=== PATIENT | female | born 1945 | race Caucasian/White ===

== ENCOUNTER 2016-03-11 18:36 | Inpatient (IN) | payer OTHER ==
[~2016-03-11] VITALS: Ht 157.5 cm; Wt 77.6 kg
--- NOTE | ~2016-03-11 | HC ---
[facility] [place] [address] CONSULTATION Name: MAEM JONES Room #: 305- ADM IN M.R.#: [id number] Admission: 03/11/16 Attend Phys: Kt Corona MD Discharge: Date of : 45 Report #: [id number] THIS REPORT FOR: //name// CC: Kt Corona [facility] physician/PCP DATE OF SERVICE: 03/14/2016 TYPE OF REPORT: General surgery consultation. REFERRING PROVIDER: Alfredito Kohli M.D. REASON FOR CONSULTATION: Left ischial decubitus ulcer. HISTORY OF PRESENT ILLNESS: The patient is a 70-year-old female who was transitioned from [facility] to [facility] with mental status changes and a CT scan of the brain that showed evidence of a left anterior cerebellar infarct. The patient has a history of prior stroke and has been bedridden for 3 years with a resultant left ischial wound that was initially treated at [facility] and then subsequently at [facility] on the keymar. The patient has undergone a prior debridement of her left ischial wound and has been undergoing aggressive local wound care. The patient does have a dialysis dependent renal failure secondary to diabetes mellitus and now that she has been transferred to [facility], Dr. Kohli from a wound care standpoint has evaluated her wound and feels that she will likely necessitate repeat excisional debridement. For that reason, I was asked to evaluate. PAST MEDICAL HISTORY: End-stage renal disease, on hemodialysis, diabetes mellitus, prior and current stroke, chronic anemia, hypertension, COPD, prior C. diff colitis, peripheral vascular disease status post stenting, renal artery stenosis status post stenting and her left ischial decubitus ulcers. CURRENT MEDICATIONS: Quetiapine, mirtazapine, doxazosin, aspirin, amlodipine, atorvastatin, iron, carvedilol, Synthroid, Protonix, Carafate, sevelamer, Neurontin and hydralazine. ALLERGIES: To SULFA. FAMILY HISTORY: Reviewed and noncontributory. SOCIAL HISTORY: The patient "smoke 3 years ago; however, she smoked 4 packs per day for several years prior, does not use any alcohol or illicit drugs currently. REVIEW OF SYSTEMS: [address] [address] CONSULTATION Name: MAME JONES Room #: 305-P [facility] IN .R.#: [id number] Admission: 03/11/16 Attend Phys: Kt Corona MD Discharge: Date of : 45 Report #: [id number] GENERAL: The patient is quite somnolent but arouses with stimulation and generally states she does not have any nocturnal fevers or chills. HEENT: No change in vision or change in hearing. NECK: No swelling or difficulty swallowing. HEART: No chest pain or palpitations. LUNGS: No cough or shortness of breath. ABDOMEN: No nausea and no vomiting. GENITOURINARY: No dysuria or hematuria. ENDOCRINE: No polyuria or polydipsia. HEMATOLOGIC: No history of bleeding or easy bruising. EXTREMITIES: No history of weakness or limited range of motion. NEUROLOGICAL: No history of syncope or near-syncopal episodes. SKIN AND INTEGUMENT: Longstanding history of a left ischial decubitus wound but no other history of abnormal lesions or moles. PSYCHIATRIC: No history of anxiety or depression. PHYSICAL EXAMINATION: VITAL SIGNS: Temperature 98.6, pulse 70, respirations 20 and blood pressure 149/59. She is 5 feet 2 inches tall and weighs 171 pounds. GENERAL: She is somnolent, but arouses with stimulation and is in no acute distress. HEENT: Normocephalic and atraumatic. Pupils equal, round and reactive to light. NECK: Supple without lymphadenopathy. Trachea midline. CARDIOVASCULAR: Heart regular rate and rhythm. RESPIRATORY: Lungs clear to auscultation bilaterally. ABDOMEN: Soft, nontender and nondistended. GENITOURINARY: Normal external female genitalia. SKIN: No clubbing, cyanosis or edema. NEUROLOGICAL: Cranial nerves 2 through 12 are grossly intact with no lateralizing signs currently. PSYCHIATRIC: Normal mood and affect; however, she does have overt somnolence. SKIN AND INTEGUMENT: Left ischial decubitus wound shows some nonviable fibrinopurulent material in the bed of the wound with a small amount of periwound necrosis and undermining circumferentially. LABORATORY AND X-RAY DATA: CBC showed white blood cell count of 9.0; hemoglobin 10.3 and platelets 255,000. She has a left shift with 75% neutrophils. Her creatinine is 5.5. Urine culture was positive for Seda. Chest x-ray shows no acute cardiopulmonary process. Hemoglobin A1c 5.6. MRA shows unremarkable findings. MRI shows an acute left cerebellar infarct as well as extensive white matter disease. ASSESSMENT AND PLAN: A 70-year-old female with a longstanding left ischial decubitus wound as well as a recent [id number] cerebrovascular accident. The patient has been admitted to be evaluated by neurology as well as [address] [address] CONSULTATION Name: MAME JONES Room #: 305-P ADM IN M.R.#: [id number] Admission: 03/11/16 Attend Phys: Kt Corona MD Discharge: Date of : 45 Report #: [id number] nephrology for her dialysis needs. The patient will likely necessitate debridement of her left ischial decubitus wound at some point once she is stabilized. However, for now, I would continue with aggressive local wound care, offloading her wound and optimizing nutritional status while we await stabilization of her neurologic symptoms from her recent acute cerebellar infarct. I sincerely appreciate this consult. I will follow closely and leave any further recommendations and the patient's chart as appropriate. <ELECTRONICALLY SIGNED> By: Qiana Hernandez MD, FACS 03/15/16 0750 2027 [id number] Qiana Hernandez MD, FACS /nt
--- NOTE | ~2016-03-11 | H ---
[facility] [place] [address] HISTORY AND PHYSICAL Name: MAME JONES Room #: 305-P ADM IN M.R.#: [id number] Admission: 03/11/16 Attend Phys: Kt Corona MD Discharge: Date of : 45 Report #: [id number] THIS REPORT FOR: //name// CC: Kt AUGUSTIN physician/PCP DATE OF SERVICE: 03/11/2016 HISTORY OF PRESENT ILLNESS: The patient is a 70-year-old female who was transferred from [facility] to [facility] for altered mental status with abnormal CT scan. The patient apparently was having some intermittent episodes of double vision over the last few months and some altered mental status. The patient had a CT scan of the brain that showed possible subacute infarct of the brain. For this reason, she was transferred to [facility] for further evaluation. The patient has been treated at [facility] for urinary tract infection and left ischial decubital ulcer. The patient was having intermittent nausea and vomiting. The patient was having some diarrhea and her stool for C. diff came back negative. PAST MEDICAL HISTORY: Significant for the above-mentioned ischial decubital ulcer and urinary tract infection. The patient had previous history of C. difficile colitis, end-stage renal disease on hemodialysis, chronic congestive heart failure, type 2 diabetes mellitus, anemia of chronic disease, hypertension, hypothyroidism, some deformity of her ankle and her feet, hyperlipidemia, history of chronic obstructive pulmonary disease, renal artery stenosis status post stenting, peripheral vascular disease status post femoral bypass and bilateral carotid bruits. MEDICATIONS: Reviewed and reconciled. SOCIAL HISTORY: The patient is a . She smoked 4 packs a day for 40 years, but she stopped in 2002. ALLERGIES: SULFA and INFLUENZA VACCINE. PAST SURGICAL HISTORY: Tubal ligation, renal artery stenosis, femoral bypass surgery, tonsillectomy, appendectomy and repair of a cleft palate. FAMILY HISTORY: Significant for diabetes, coronary artery disease and adrenal cancer. REVIEW OF SYSTEMS: Unobtainable. PHYSICAL EXAMINATION: GENERAL: When I came to see the patient, she was responding to verbal stimulation, but she was able to follow commands. The patient was able to open [facility] [address] [place] [address] HISTORY AND PHYSICAL Name: MAME JONES Room #: 305-P [facility] IN .R.#: [id number] Admission: 03/11/16 Attend Phys: Kt Corona MD Discharge: Date of : 45 Report #: [id number] her eyes, but very lethargic. VITAL SIGNS: The patient's temperature was 98.0, pulse 69, respirations 13, blood pressure 114/46. HEAD AND NECK: Unremarkable. NECK: Supple. LUNGS: Clear to auscultation with good air entry bilaterally. CARDIOVASCULAR: S1, S2, without any murmur or gallop. ABDOMEN: Benign. Bowel sounds were positive. EXTREMITIES: Without any edema. The patient is able to follow the command and she was able to squeeze my hands and to move her legs. LABORATORY DATA: The patient's 12-lead EKG showed sinus rhythm with nonspecific intraventricular conduction delay with left axis deviation, left ventricular hypertrophy. CBC showed a white count of 11.9, hemoglobin 10.9, hematocrit 33.0, platelet count 254, neutrophils are 81% with 3% band. The patient's sodium is 138, potassium 3.6, chloride 99, bicarbonate 30, BUN 19, creatinine 2.3, glucose 146, AST 21. Lipase 334, alkaline phosphatase 122, ALT 15, total protein 8.3, albumin is 2.6. Troponin less than 0.04. The patient's chest x-ray showed no acute cardiopulmonary process. Urinalysis showed cloudy urine, +2 protein, trace ketones, trace of blood, +2 leukocyte, more than 25 white blood cells. The patient's CT of the brain showed a well demarcated area of low density involving the left anterior cerebellar hemisphere extending into the vermis and left middle cerebral branch. This is most compatible with a subacute or chronic infarct periventricular white matter disease and prior right-sided cerebral infarct. The patient's INR is 1 and PTT was 26.4. ASSESSMENT AND PLAN: 1. Altered mental status. 2. Possible infarct. 3. Recent urinary tract infection. 4. Ischial decubital ulcer. 5. End-stage renal disease, on hemodialysis. 6. Hypertension. 7. Recent urinary tract infection. 8. Recent anemia with requirement of blood transfusion. The patient will be admitted to the hospital with the above-mentioned diagnoses. We are having an MRI done on the patient in addition to an MRA and ultrasound of the carotid arteries. We will check an echocardiogram on the patient. The patient is not on any aspirin. For this reason, I will go ahead and start patient on aspirin. I will have Neurology to consult on the patient in addition [facility] [address] [place] [address] HISTORY AND PHYSICAL Name: MAME JONES Room #: 305-P ADM IN M.R.#: [id number] Admission: 03/11/16 Attend Phys: Kt Corona MD Discharge: Date of : 45 Report #: [id number] to Nephrology. We will wait for the urine culture and we will have Wound to consult on her wound. <ELECTRONICALLY SIGNED> By: Kt Corona MD 03/13/16 0712 0659 0749 Kt Corona MD /nt
--- NOTE | ~2016-03-11 | 2DMMODE ---
[facility] [place] [address] 2 D/M-MODE ECHOCARDIOGRAM Name: MAME JONES Room #: 305-P [facility] IN .R.#: [id number] Admission: 03/11/16 Attend Phys: Kt Corona MD Discharge: Date of : 45 Date of Service: 03/12/16 1145 Report #: [id number] THIS REPORT FOR: //name// Transthoracic Echocardiography Ordering physician: Kt Corona Referring physician: Kt Corona [employer] Sales Counter Manager: Yasmeen Butler RDCS Indications/History: COPD. Congestive heart failure. Risk factors: Current tobacco use. Hypertension. Diabetes mellitus. BP: 142 / HR: 65bpm Height: 62in Weight: 170.6lb 62 Study data: M-mode, complete 2D, complete spectral Doppler, and color Doppler. Location: Echo laboratory. Travel Sales Consultant. Image quality was adequate. 2D measurements Normal Normal LVID ED 45.2mm 36-57 IVS ED 15.1mm 6-11 LVID ES 36.1mm 23-40 LVPW ED 12.8mm 6-11 LA volume 38ml/m2 16-28 AoRoot diam 28mm 21-37 index ED LVOT diameter 17mm 18-23 Findings: Left ventricle: The cavity size was normal. Wall thickness was increased in a pattern of moderate LVH. Systolic function was normal. Wall motion was normal. Right ventricle: The cavity size was normal. Systolic function was normal. Right atrium: The atrium was dilated. Left atrium: The atrium was mildly dilated. Volume index: 38ml/m2 (S). Aortic valve: Structurally normal valve. Mildly sclerotic leaflets. Doppler: There was no stenosis. No [address] [address] 2 D/M-MODE ECHOCARDIOGRAM Name: MAME JONES Room #: 305-P [facility] IN M.R.#: [id number] Admission: 03/11/16 Attend Phys: Kt Corona MD Discharge: Date of : 45 Date of Service: 03/12/16 1145 Report #: [id number] regurgitation. Peak velocity: 139.3cm/s (S). Mitral valve: Calcified annulus. Doppler: There was no evidence for stenosis. No regurgitation. Peak E-wave velocity: 135.5cm/s. Peak gradient: 7.3mm Hg (D). Peak A-wave velocity: 127.4cm/s. Tricuspid valve: Structurally normal valve. Doppler: There was no evidence for stenosis. Trivial regurgitation. Regurgitant peak velocity: 251.7cm/s. Peak RV-RA gradient: 25mm Hg (S). Pulmonic valve: Structurally normal valve. Doppler: There was no evidence for stenosis. No regurgitation. Pericardium: There was no pericardial effusion. Aorta: Aortic root: The aortic root was normal in size. Pulmonary artery: Systolic pressure was estimated to be 30mm Hg. Diastolic function: Doppler parameters are consistent with abnormal left ventricular relaxation (grade 1 diastolic dysfunction). Systemic veins: Inferior vena cava: The vessel was normal in size; the respirophasic diameter changes were in the normal range (= 50%). Conclusions 1. Left ventricle: The cavity size was normal. Wall thickness was increased in a pattern of moderate LVH. Systolic function was normal. Doppler parameters are consistent with abnormal left ventricular relaxation (grade 1 diastolic dysfunction). 2. Aortic valve: Structurally normal valve. Mildly sclerotic leaflets. There was no stenosis. 3. Mitral valve: Calcified annulus. There was no evidence for stenosis. No regurgitation. Valve area by pressure half-time: 2.5cm2. Indexed valve area by pressure half-time: 1.35cm2/m2. 4. Tricuspid valve: Peak RV-RA gradient: 25mm Hg (S). 5. Pericardium, extracardiac: There was no pericardial effusion. <ELECTRONICALLY SIGNED> By: Geo Gottlieb MD 03/12/161711 1145 11 Geo Gottlieb MD /max
--- NOTE | ~2016-03-11 | EKG ---
[address] [place] [address] ELECTROCARDIOGRAM REPORT Name: GRAEME JONESLEY Room #: 305-P ADM IN M.R.#: [id number] Admission: 03/11/16 Attend Phys: Kt Corona MD Discharge: Date of : 45 Report #: [id number] THIS REPORT FOR: //name// [facility] ED Test Date: 2016-03-11 Test Time: 18:56:55 Pat Name: MAME JONES Department: Room: [facility] Gender: F Obstetric Assistant: [id number] : 1945 Requested By: Carolina Moura Order Number: [id number] MD: Geo Gottlieb Measurements Intervals [place] Rate: 68 P: 43 NM: 159 QRS: -36 QRSD: 119 T: 45 QT: 480 QTc: 511 Interpretive Statements Sinus rhythm Nonspecific IVCD with LAD Left ventricular hypertrophy No previous ECG available for comparison Electronically Signed On 03-12-2016 8:05:41 [employer]MONIA PRINT OPERATOR by Geo Gottlieb [email or web address] <ELECTRONICALLY SIGNED> By: Geo Gottlieb MD 03/12/16 0805 185 55 Geo Gottlieb MD /VICKY
--- NOTE | ~2016-03-11 | HC ---
[facility] [place] [address] CONSULTATION Name: MAME JONES Room #: 305-P ADM IN M.R.#: [id number] Admission: 03/11/16 Attend Phys: Kt Corona MD Discharge: Date of : 45 Report #: [id number] THIS REPORT FOR: //name// CC: Kt AUGUSTIN physician/PCP DATE OF SERVICE: 03/12/2016 Nephrology Consultation REASON FOR CONSULTATION: End-stage renal disease. HISTORY OF PRESENT ILLNESS: This is a 70-year-old female whom I have never seen before. Currently the patient is very lethargic, is noncommunicative, so I cannot get history for her. I have reviewed her electronic medical records and also reviewed several consultation notes and labs that were sent over from [facility]. She has been at now for the past 10 days. Prior to that, it looks like she was admitted originally to [facility], transferred from there to [facility] in [place] and then [facility] to [place]. She has had chronic wounds involving her left hip. She has also had urinary tract infections and some foot wounds. She has had a previous CVA and looks like she has had a worsening CVA at this time. From a renal standpoint, she has been on dialysis Monday, Monday and Monday, she has been dialyzing through a pair of left internal jugular vein Tesio catheters. She last dialyzed yesterday at [place]. It looks like she has end-stage renal disease due to diabetes. ADDITIONAL PAST MEDICAL HISTORY: Includes the decubitus ulcers, previous CVA, chronic anemia, hypertension, type 2 diabetes, some COPD, previous C. diff colitis, previous vascular disease involving lower extremity revascularization and a stent to one kidney artery. 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 CURRENT MEDICATIONS: Include quetiapine 12.5 mg daily, mirtazapine 7.5 mg at bedtime, doxazosin 2 mg at bedtime, aspirin 81 mg daily, amlodipine 5 mg daily, atorvastatin 20 mg daily, ferrous sulfate 325 mg b.i.d., carvedilol 12.5 mg b.i.d., levothyroxine 0.025 mg daily, pantoprazole 40 mg daily, Carafate 1 g 4 times daily, sevelamer 800 mg t.i.d. with meals as a phosphate binder, gabapentin 200 mg b.i.d., hydralazine 50 mg q. 8 hours and numerous p.r.n. medications. ALLERGIES: SULFA. [address] [address] CONSULTATION Name: MAME JONES Room #: 305-P [facility] IN M.R.#: [id number] Admission: 03/11/16 Attend Phys: Kt Corona MD Discharge: Date of : 45 Report #: [id number] FAMILY HISTORY: Positive for hypertension. SOCIAL HISTORY: The patient apparently is at least from the [facility], although I do not have a home address, she is unable to provide anything, again she has been to multiple hospitals recently including most recently . REVIEW OF SYSTEMS: Unavailable. PHYSICAL EXAMINATION: GENERAL: Elderly appearing female sleeping. She arouses briefly, but is noncommunicative at that time. VITAL SIGNS: Blood pressure 144/59, heart rate is 65, respiratory rate 18, temperature 36.4, oxygen saturation 100%. HEENT: Shows pupils that are 3 mm and reactive. Sclerae are nonicteric. Oral mucosa is dry. NECK: Supple, no JVD. She has a pair of tunneled left internal jugular vein Tesio catheters in place. CHEST: Shows a few central rhonchi. HEART: Has a regular rate and rhythm. ABDOMEN: Has bowel sounds, which are present. Abdomen is soft, nondistended, nontender. EXTREMITIES: Show no peripheral edema. LABORATORY DATA: Sodium ____, potassium 3.6, chloride 99, bicarbonate 30, BUN 19, creatinine 2.3, glucose 146, calcium 9.0, total protein 8.3, albumin 2.6. White count 9.3, hemoglobin 10.5, hematocrit 31.8, platelets 249,000. Urinalysis, specific gravity 1.025, pH 5.5, 2+ protein, trace ketones, greater than 25 white cells, few bacteria. ASSESSMENT: 1. Possible cerebrovascular accident: I reviewed neurology's noted. They are concerned about a cerebellar lesion. She is to get an MRI. 2. End-stage renal disease: Her labs are from last night and based upon the way they look, she was dialyzed yesterday. We will repeat them tomorrow to see how much things are changing. Currently, I see no indication for dialysis immediately. I expect we will plan on dialysis on her usual schedule on 03/14/2016. 3. Hypertension: We will keep at a moderate range with her cerebrovascular accident. 4. Type 2 diabetes mellitus. 5. Peripheral vascular disease. 6. Chronic wounds, ongoing therapy at [place]. 7. Prior cerebrovascular accident. [facility] [address] [place] [address] CONSULTATION Name: MAME JONES Room #: 305-P ADM IN M.R.#: [id number] Admission: 03/11/16 Attend Phys: Kt Corona MD Discharge: Date of : 45 Report #: [id number] PLAN: 1. Recheck labs in the morning. 2. If things go as expected, we will plan on her next dialysis on 03/14/2016. Certainly we can do it earlier if there are pressing issues. 3. We will follow along the care of this patient. <ELECTRONICALLY SIGNED> By: Cirilo Polanco MD 03/13/16 0922 1528 1707 Cirilo Polanco MD /nt
--- NOTE | ~2016-03-11 | HC ---
[facility] [place] [address] CONSULTATION Name: MAME JONES Room #: 305-P [facility] IN M.R.#: [id number] Admission: 03/11/16 Attend Phys: Kt Corona MD Discharge: 03/16/16 Date of : 45 Report #: [id number] THIS REPORT FOR: //name// CC: Kt Corona FAM physician/PCP DATE OF SERVICE: 03/14/2016 PERSONAL PHYSICIAN: Dr. Corona. CHIEF COMPLAINT: Ischial tuberosity ulceration and recent CVA. HISTORY OF PRESENT ILLNESS: This is an elderly white female who is a very poor historian, who supposedly came from [facility], where she was being treated for a left ischial tuberosity ulceration. The patient was noted to have altered mental status, was brought to the hospital for further evaluation. CAT scan shows concerns for left anterior cerebellar infarct. The patient supposedly had a previous stroke, has been basically bedridden for the past 3 years. The patient states that she had a previous ulcer on her right dorsal foot, which is now nearly healed. The patient states that she is unclear how long the ulceration on her ischial region has been present. The patient is unable to give me any other associated history. PAST MEDICAL HISTORY: Per the chart. Significant for the ischial decubitus ulcer; urinary tract infections; previous history of C. difficile colitis; end-stage renal disease, on hemodialysis; type 2 diabetes; anemia of chronic disease; hypertension; hypothyroidism; flexion contracture of the right foot; COPD; peripheral vascular disease, status post femoral-femoral bypass. CURRENT MEDICATIONS: Multiple, I reviewed the patient's medication list. DRUG ALLERGIES INCLUDE: SULFA, INFLUENZA VIRUS. SOCIAL HISTORY: The patient has history of smoking up to 4 packs of cigarettes daily; however, she has not smoked over the past 3 years since her stroke. The patient states that she lives at [place]. FAMILY HISTORY: Not pertinent to current medical condition. REVIEW OF SYSTEMS: Essentially unobtainable because the patient is unable to give an adequate history. PHYSICAL EXAMINATION: VITAL SIGNS: Stable. The patient is afebrile. GENERAL: This is an alert and oriented x1 person, but not place or time, elderly white female who is in no acute distress. [address] [address] CONSULTATION Name: MAME JONES Room #: 305-P [facility] IN M.R.#: [id number] Admission: 03/11/16 Attend Phys: Kt Corona MD Discharge: 03/16/16 Date of : 45 Report #: [id number] HEENT: Normocephalic, atraumatic. Mucous membranes are somewhat dry. Pupils are round. Sclerae white. NECK: Without JVD or masses. LUNGS: Slightly diminished breath sounds heard throughout. HEART: Regular without murmur. ABDOMEN: Obese, soft otherwise nontender. EXTREMITIES: The patient has decreased movement of lower extremities. Bilateral heels are intact. Evaluation dorsal aspect of the right foot reveals a flexion contracture with the area of what appears to be healed chronic ulcer with just mild blanching of the periwound area. There is small amount of slough noted in the central portion with the heel part, but is a stage II to the right foot with a slight amount of slough within the wound bed itself. Evaluation of coccygeal region reveals a stage II coccygeal ulcer wound that is pink and healthy and granulating without odor or drainage. On the left, ischial tuberosity is a stage 4 decubitus ulcer with palpable bone, measures 4.5 x 5.0 x 4.0 cm. Wound bed has approximately 30% yellow moist slough, slight odor of serosanguineous drainage is noted. NEUROLOGIC: Cranial nerves 2-12 grossly intact. Motor and sensory grossly intact. LABORATORY DATA: White count 9.0, hemoglobin 10.3. Albumin low at 2.2. WOUND CARE COURSE: At this point in time, the patient's left ischial tuberosity wound appears that it would do better with surgical debridement. We will try to clean this up with Dakin's at the bedside; however, I think I will put a consultation with the surgeons for evaluation of possible surgical debridement given when she has medical clearance for the recent possible CVA. IMPRESSION: 1. Stage 4 decubitus ulcer in the left ischial tuberosity. 2. Stage 2 decubitus ulcer of coccygeal region. 3. Stage 2 decubitus ulcer of right dorsal foot. 4. History of recent cerebrovascular accident. 5. Diabetes mellitus. 6. Peripheral vascular disease. 7. Hypertension. 8. Severe protein calorie malnutrition. PLAN: At this time, low-air loss mattress has been ordered. The patient will be turned every 2 hours. We will continue to cleanse the wound on the left ischial region twice daily and pack it with Dakin's moist Kerlix pending more further surgical debridement. We will put barrier cream to the coccyx area and an Optifoam dressing over the right dorsal foot. We will try to maximize the patient's protein supplementation for healing. We will continue to follow the patient. [address] [address] CONSULTATION Name: MAME JONES Room #: 305-P [facility] IN .R.#: [id number] Admission: 03/11/16 Attend Phys: Kt Corona MD Discharge: 03/16/16 Date of : 45 Report #: [id number] I appreciate the ability to consult this patient. <ELECTRONICALLY SIGNED> By: Alfredito Kohli MD 03/18/16 0822 [id number] Alfredito Kohli MD /nt
[2016-03-11 18:38] VITALS: BP 114/46
[2016-03-11 18:59] LABS: HEMOGLOBIN 10.9 gm/dL (12.0-15.0); MCH 30.7 pg (26.0-34.0); MCHC 33.1 % (28.0-37.0); MCV 92.9 fL (80.0-100.0); PLATELET COUNT 254 thou/uL (150-400); RBC 3.56 mil/uL (4.20-5.00); RDW 16.7 % (10.5-14.5); WBC 11.9 thou/uL (4.0-11.0)
[2016-03-11 19:01] LABS: MANUAL DIFF YES
[2016-03-11 19:17] LABS: CREATININE 2.3 mg/dL (0.6-1.3); POTASSIUM 3.6 mmol/L (3.5-5.1)
[2016-03-11 19:18] LABS: ANISOCYTOSIS 1+; TOTAL CELL COUNT 100
[2016-03-11 19:23] LABS: ALBUMIN 2.6 g/dL (3.4-5.0); TOTAL BILIRUBIN 0.4 mg/dL (<0.1-1.0); TOTAL PROTEIN 8.3 g/dL (6.4-8.2)
[2016-03-11 20:51] LABS: URINE BLOOD TRACE (Negative); URINE GLUCOSE-RANDOM* NEGATIVE (Negative); URINE KETONES TRACE (Negative); URINE NITRITE NEGATIVE (Negative); URINE PROTEIN (DIPSTICK) 2+ (Negative); URINE SPECIFIC GRAVITY 1.025 (1.003-1.035); URINE UROBILINOGEN 0.2 E.U./dl (0.2-1.0)
[2016-03-11 20:57] LABS: ICTOTEST (BILI CONFIRMATORY) Negative (Negative); URINE BILIRUBIN NEGATIVE (Negative); URINE COLOR DARK YELLOW
[2016-03-11 21:07] LABS: SQUAMOUS 0-3 Few /LPF (0-3)
[2016-03-11 21:08] LABS: CASTS None Seen /LPF (None Seen); CRYSTALS None Seen /LPF (None Seen); URINE WBC >25 Many /HPF (0-5); YEAST Present (None Seen)
[2016-03-11 21:09] LABS: BACTERIA 1-9 Few /HPF (None Seen); URINE RBC 0-2 Rare /HPF (0-2)
[2016-03-11 23:12] LABS: APTT 26.4 Seconds (24.5-32.8); PROTIME 10.4 Seconds (9.3-11.4)
[2016-03-11 23:43] VITALS: BP 132/45
[2016-03-12 00:41] VITALS: BP 147/57
[2016-03-12] MEDS ORDERED: DUONEB 2.5-0.5 M3 ML INH (02:16)
[2016-03-12] MEDS ORDERED: ONDANSETRON HCL4 M1 IV PUSH ×2 (02:19→02:47)
[2016-03-12] MEDS ORDERED: LIPITOR 20 MG T20 M1 PO (02:20)
[2016-03-12] MEDS ORDERED: REMERON15 MG PO (02:21)
[2016-03-12] MEDS ORDERED: PANTOPRAZOLE SO40 MG PO (02:22)
[2016-03-12] MEDS ORDERED: ARANESP 6060 MCG/0.3 SUBQ (02:23)
[2016-03-12] MEDS ORDERED: CARAFATE 1 GM TA1 G1 PO (02:24)
[2016-03-12] MEDS ORDERED: HYDRALAZINE 2525 MG PO (02:25)
[2016-03-12] MEDS ORDERED: SODIUM CHLORID100 M4 IV (02:28)
[2016-03-12] MEDS ORDERED: SEROQUEL 25 MG25 M1 PO (02:34)
[2016-03-12] MEDS ORDERED: PROCEL1 EACH PO (02:36)
[2016-03-12] MEDS ORDERED: [UNRECOGNIZED DRUG - OTHER] IV PUSH ×2 (02:38→02:42)
[2016-03-12] MEDS ORDERED: HEPARIN IV PUSH ×2 (02:38→02:42)
[2016-03-12] MEDS ORDERED: IRON325 PO (02:40)
[2016-03-12] MEDS ORDERED: SEROQUEL 25 MG25 MG PO (02:40)
[2016-03-12] MEDS ORDERED: NORVASC2.5 MG PO (02:41)
[2016-03-12] MEDS ORDERED: SODIUM CHLORI1000 M4 IV (02:45)
[2016-03-12] MEDS ORDERED: NOVASOURCE REN237 ML PO (02:46)
[2016-03-12] MEDS ORDERED: TYLENOL325 MG PO (02:48)
[2016-03-12] MEDS ORDERED: RENVELA800 MG PO (02:49)
[2016-03-12] MEDS ORDERED: GABAPENTIN 100100 MG PO (02:49)
[2016-03-12] MEDS ORDERED: CARDURA2 MG PO (02:50)
[2016-03-12] MEDS ORDERED: BETADINE1 EACH TOP (02:51)
[2016-03-12] MEDS ORDERED: B COMPLEX WITH1 EAC1 PO (02:52)
[2016-03-12] MEDS ORDERED: DAKIN'S473 M1 TOP (02:53)
[2016-03-12] MEDS ORDERED: COREG25 MG PO (02:54)
[2016-03-12] MEDS ORDERED: PROBIOTIC1 EAC1 PO (02:54)
[2016-03-12] MEDS ORDERED: LEVOTHYROXIN0.025 MG PO (02:55)
[2016-03-12] MEDS ORDERED: PHENERGAN 25 MG25 M1 PO (02:55)
[2016-03-12] MEDS ORDERED: HYDROCODONE-AP1 EAC6 PO (02:56)
[2016-03-12 04:00] VITALS: BP 134/53
[2016-03-12 07:57] VITALS: BP 142/62
[2016-03-12 08:20] LABS: HEMATOCRIT 31.8 % (37.0-47.0); HEMOGLOBIN 10.5 gm/dL (12.0-15.0); MCH 30.5 pg (26.0-34.0); MCHC 32.8 % (28.0-37.0); MCV 92.7 fL (80.0-100.0); RBC 3.43 mil/uL (4.20-5.00); RDW 16.5 % (10.5-14.5); WBC 9.3 thou/uL (4.0-11.0)
[2016-03-12 11:41] LABS: CHOLESTEROL 148 mg/dL (<200); TRIGLYCERIDE 198 mg/dL (<150); VLDL 40 mg/dL (<40)
[2016-03-12 11:42] LABS: HDL CHOLESTEROL 52 mg/dL (>40); LDL CHOLESTEROL 57 mg/dL (<100); NT-PRO BRAIN NAT PEPTIDE 9778 pg/mL (<300); TC:HDL 2.8 Ratio (Not establshd)
[2016-03-12 12:00] VITALS: BP 144/59
[2016-03-12 16:00] VITALS: BP 146/55
[2016-03-12 19:30] VITALS: BP 133/58
[2016-03-12 22:06] LABS: GLYCOHEMOGLOBIN (HGB A1C) 5.6 % (4.8-5.6)
[2016-03-13 03:39] VITALS: BP 114/49
[2016-03-13 06:08] LABS: HEMATOCRIT 31.4 % (37.0-47.0); HEMOGLOBIN 10.2 gm/dL (12.0-15.0); MCH 30.6 pg (26.0-34.0); MCHC 32.5 % (28.0-37.0); MCV 94.2 fL (80.0-100.0); RBC 3.33 mil/uL (4.20-5.00); RDW 16.5 % (10.5-14.5); WBC 9.6 thou/uL (4.0-11.0)
[2016-03-13 06:24] LABS: ALBUMIN 2.2 g/dL (3.4-5.0); CALCIUM 8.6 mg/dL (8.5-10.1); PHOSPHORUS 3.9 mg/dL (2.5-4.9); POTASSIUM 4.4 mmol/L (3.5-5.1)
[2016-03-13 06:26] LABS: CREATININE 4.4 mg/dL (0.6-1.3)
[2016-03-13 08:22] VITALS: BP 120/45
[2016-03-13 16:57] VITALS: BP 132/49
[2016-03-13 20:00] VITALS: BP 144/57
[2016-03-14 04:44] VITALS: BP 134/57
[2016-03-14 06:28] LABS: ABSOLUTE NEUTROPHILS 6.8 thou/uL (1.4-8.2); BASOPHILS 0.6 % (0.0-2.0); EOSINOPHILS 5.6 % (0.0-3.0); HEMOGLOBIN 10.3 gm/dL (12.0-15.0); LYMPHOCYTES 11.5 % (24.0-44.0); MANUAL DIFF NO; MCH 30.3 pg (26.0-34.0); MCHC 32.3 % (28.0-37.0); MONOCYTES 7.2 % (1.0-8.0); PLATELET COUNT 255 thou/uL (150-400); POLYS 75.1 % (36.0-66.0); RBC 3.41 mil/uL (4.20-5.00); RDW 15.7 % (10.5-14.5)
[2016-03-14 06:44] LABS: CALCIUM 8.9 mg/dL (8.5-10.1); POTASSIUM 4.4 mmol/L (3.5-5.1)
[2016-03-14 06:54] LABS: CREATININE 5.5 mg/dL (0.6-1.3)
[2016-03-14 11:45] VITALS: BP 152/52
[2016-03-14 16:00] VITALS: BP 168/68
[2016-03-14 19:49] VITALS: BP 149/59
[2016-03-15 04:13] VITALS: BP 172/60
[2016-03-15 05:29] LABS: HEMATOCRIT 32.8 % (37.0-47.0); HEMOGLOBIN 10.5 gm/dL (12.0-15.0); MCH 30.3 pg (26.0-34.0); MCHC 32.1 % (28.0-37.0); MCV 94.6 fL (80.0-100.0); RBC 3.47 mil/uL (4.20-5.00); RDW 15.6 % (10.5-14.5); WBC 8.4 thou/uL (4.0-11.0)
[2016-03-15 05:45] LABS: ALBUMIN 2.1 g/dL (3.4-5.0); CALCIUM 8.4 mg/dL (8.5-10.1); POTASSIUM 4.4 mmol/L (3.5-5.1); TOTAL BILIRUBIN 0.3 mg/dL (<0.1-1.0); TOTAL PROTEIN 6.7 g/dL (6.4-8.2)
[2016-03-15 05:51] LABS: CREATININE 3.4 mg/dL (0.6-1.3)
[2016-03-15 07:57] VITALS: BP 128/42
[2016-03-15 16:18] VITALS: BP 146/66
[2016-03-15 19:45] VITALS: BP 159/61
[2016-03-16 04:10] VITALS: BP 145/50
[2016-03-16] MEDS ORDERED: FISH OIL 1,0001 EAC5 PO (08:07)
[2016-03-16] MEDS ORDERED: ASPIRIN EC325 M1 PO (08:07)
[2016-03-16 10:04] VITALS: BP 158/58
[2016-03-16 17:26] VITALS: BP 149/47
== END 2016-03-16 19:38 | DRG 64 ==
LOC: ER 18:36 → EDBD 18:36 → 3N 22:44 → EROBS 22:44 → 3N 23:46
PROVIDERS: Internal Medicine; Internal Medicine Nephrology; Nurse Practitioner Family; Psychiatry & Neurology Neurology
PROC: 5A1D60Z (ICD-10-PCS; principal; 2016-03-14)
DX: I63.9 Cerebral infarction, unspecified (principal); N18.6 End stage renal disease; E43 Unspecified severe protein-calorie malnutrition; L89.224 Pressure ulcer of left hip, stage 4; N39.0 Urinary tract infection, site not specified; I13.0 Hypertensive heart and chronic kidney disease with heart failure and stage 1 through stage 4 chronic kidney disease, or unspecified chronic kidney disease; E03.9 Hypothyroidism, unspecified; E78.5 Hyperlipidemia, unspecified; I73.9 Peripheral vascular disease, unspecified; J44.9 Chronic obstructive pulmonary disease, unspecified; E11.22 Type 2 diabetes mellitus with diabetic chronic kidney disease; D63.1 Anemia in chronic kidney disease; L89.152 Pressure ulcer of sacral region, stage 2; L89.892 Pressure ulcer of other site, stage 2; E66.9 Obesity, unspecified; I50.9 Heart failure, unspecified; E11.51 Type 2 diabetes mellitus with diabetic peripheral angiopathy without gangrene; Z86.19 Personal history of other infectious and parasitic diseases; Z90.49 Acquired absence of other specified parts of digestive tract; Z98.890 Other specified postprocedural states; Z99.2 Dependence on renal dialysis; Z82.49 Family history of ischemic heart disease and other diseases of the circulatory system; Z88.7 Allergy status to serum and vaccine; Z87.81 Personal history of (healed) traumatic fracture; Z87.891 Personal history of nicotine dependence; Z68.31 Body mass index [BMI] 31.0-31.9, adult; Z83.3 Family history of diabetes mellitus; Z80.51 Family history of malignant neoplasm of kidney; Z91.012 Allergy to eggs
CPT/HCPCS: 10096; 32100